=== PATIENT | female | born 1985 | race Caucasian/White ===

== ENCOUNTER 2017-06-18 06:11 | Inpatient (IN) | payer OTHER ==
[~2017-06-18] VITALS: Ht 175.3 cm; Wt 82.0 kg
[2017-06-18] MEDS ORDERED: VITAFOL-OB+DHA1 EACH PO (06:44)
[2017-06-18] MEDS ORDERED: ACYCLOVIR200 MG PO (06:45)
--- NOTE | 2017-06-19 07:54 | PR ---
[facility] [address] [place], [place] [address] Signed PP Progress Notes Datetime Report Generated by TESSA: 06/19/2017 07:54 SUBJECTIVE: [id number] Pain: Within normal limits Vital Signs: [id number] Vital Signs: Reviewed; Within Normal Limits EXAM: [id number] Cardiovascular: Not Done Respiratory: Not Done Abdomen/Uterus: Abnormal Lochia: Normal Vulva/Perineum: Not Done Breasts: Not Done CVA Tenderness: Not Done Extremities: Normal Incision: Not Applicable Progress: Normal Exam Comments: Fundus firm, NT @ U-1. H/H 10.9/32.2, WBC 13.5, plat 194k IMPRESSION/PLAN/PROCEDURES: [id number] Impression: Normal progression Plan: Continue present management Procedures: None Progress Notes: Doing well. Will continue current management. Signing Physician: Dionne Kelsey MD CC: *Electronically Signed* 06/19/17 0754 DIONNE KELSEY MD PATIENT NAME: BRISA NGUYEN PROGRESS NOTE DATE OF : 83 PHYSICIAN: DIONNE KELSEY MD RPT #: [id number] REPORT IS CONFIDENTIAL AND NOT TO BE RELEASED WITHOUT AUTHORIZATION
--- NOTE | 2017-06-20 07:00 | PR ---
[facility] [address] [facility] [place], [place] [address] Signed PP Progress Notes Datetime Report Generated by CPN: 06/20/2017 07:00 SUBJECTIVE: [id number] Pain: Within normal limits Vital Signs: [id number] Vital Signs: Reviewed; Within Normal Limits EXAM: [id number] Cardiovascular: Not Done Respiratory: Not Done Abdomen/Uterus: Abnormal Lochia: Normal Vulva/Perineum: Not Done Breasts: Not Done CVA Tenderness: Not Done Extremities: Normal Incision: Not Applicable Progress: Normal Exam Comments: Fundus firm, NT @ U-1. IMPRESSION/PLAN/PROCEDURES: [id number] Impression: Normal progression Plan: Discharge Procedures: None Progress Notes: Doing well. She is ready for D/C. Signing Physician: Dionne Kelsey MD CC: *Electronically Signed* 06/20/17 0700 DIONNE KELSEY MD PATIENT NAME: BRISA NGUYEN PROGRESS NOTE DATE OF : 83 PHYSICIAN: DIONNE KELSEY MD RPT #: [id number] REPORT IS CONFIDENTIAL AND NOT TO BE RELEASED WITHOUT AUTHORIZATION
== END 2017-06-20 10:54 | disposition home or self-care (01) | DRG 775 ==
LOC: FBC 06:11
PROVIDERS: ADMIT Obstetrics & Gynecology
PROC: 10E0XZZ Delivery of Products of Conception, External Approach (ICD-10-PCS; principal; 2017-06-18)
PROC: 10907ZC Drainage of Amniotic Fluid, Therapeutic from Products of Conception, Via Natural or Artificial Opening (ICD-10-PCS; 2017-06-18)
PROC: 0HQ9XZZ Repair Perineum Skin, External Approach (ICD-10-PCS; 2017-06-18)
DX: O70.0 First degree perineal laceration during delivery (principal); Z3A.39 39 weeks gestation of pregnancy; Z37.0 Single live birth
CPT/HCPCS: 01960; 36415; 85027; J2540; J2590; J3010; J3105

== ENCOUNTER 2021-04-01 20:08 | Emergency (ER) | payer OTHER ==
[~2021-04-01] VITALS: Ht 175.3 cm; Wt 68.0 kg
[~2021-04-01 20:08] MED LIST: ACYCLOVIR200 MG PO; VITAFOL-OB+DHA1 EACH PO
== END 2021-04-01 22:30 | disposition home or self-care (01) ==
LOC: ED 20:08
DX: K43.9 Ventral hernia without obstruction or gangrene (principal); Z87.891 Personal history of nicotine dependence
CPT/HCPCS: 80053; 81001; 83690; 84703; 85025; 99284

== ENCOUNTER 2021-05-30 22:49 | Emergency (ER) | payer OTHER ==
[~2021-05-30] VITALS: Ht 175.3 cm; Wt 63.5 kg
[2021-05-30] MEDS ORDERED: CLINDAMYCIN HC300 MG PO (23:50)
== END 2021-05-31 00:03 | disposition home or self-care (01) ==
LOC: ED 22:49
DX: R59.0 Localized enlarged lymph nodes (principal)
CPT/HCPCS: 99283